=== PATIENT | female | born 1950 | race Caucasian/White ===

== ENCOUNTER 2024-12-07 20:46 | Observation (INO) ==
[2024-12-07 20:56] VITALS: TEMP 98.1
--- NOTE | 2024-12-07 20:59 | Emergency Department Note ---
Impression & Plan Acute alteration in mental status, Hypomagnesemia, Elevated troponin, Acute UTI ED Provider Note CHIEF COMPLAINT: Altered mental status, ? UTI HISTORY OF PRESENTING ILLNESS: This 74-year-old female patient presents to the emergency department with her granddaughter for evaluation of increased confusion and visual hallucinations. The patient's family states that yesterday she started to seem altered. Symptoms got worse today. The patient and her family state that she sometimes gets these symptoms with UTIs. The patient will have lucid intervals throughout the day, but then continued altered mental status. The patient has not had any facial droop, trouble walking, trouble talking, or weakness of the extremities. She has not had any strokelike symptoms other than the altered mental status and visual hallucinations. She denies any chest pain or shortness of breath. Denies any abdominal pain, nausea, or vomiting. The patient denies any urinary symptoms, but the patient is a very poor historian. She has not had any fever or chills. The patient does have a history of breast cancer. The patient had an outpatient MRI of her brain without contrast on 11/08/2024 that shows no acute intracranial abnormality or evidence for metastatic disease. Stable confluent T2 and FLAIR hyperintensities in the supratentorial white matter including temporal bones which is similar to prior study. This is nonspecific and may relate to chronic small vessel disease, demyelinating disease, vasculitis, or combination. REVIEW OF SYSTEMS: See HPI for pertinent positives and pertinent negatives. ALLERGIES: Latex, adhesive tape MEDICATIONS: See below PAST MEDICAL HISTORY: See below PHYSICAL EXAM: VITALS: Vitals are noted on the nurse's note and reviewed by myself. GENERAL: No acute distress, non-diaphoretic. SKIN: Capillary reflex less than 2 seconds. HEAD: No scalp tenderness. No step-offs felt. EARS: Bilateral external auditory canals clear. Bilateral tympanic membranes pearly arreola without erythema or effusion. No hemotympanum. No parikh sign. No mastoid tenderness. EYES: Pupils equal round and reactive to light and accommodation. Conjunctivae without injection, sclerae without icterus. Extraocular movements intact without pain. No nystagmus. NOSE: Patent, turbinates without inflammation or discharge. No sinus tenderness. No septal hematoma or bleeding. FACE: No facial bone tenderness. Full range of motion of the jaw without tenderness. No facial droop. MOUTH: Mucous membranes moist. Uvula midline. Airway patent. Tongue does not deviate. NECK: Supple without nuchal rigidity. Cervical spine is nontender. Full range of motion of the neck without tenderness and normal strength. HEART: Regular rate and rhythm without murmurs gallops or rubs. LUNGS: Clear to auscultation bilaterally without wheezes, rales or rhonchi. No retractions or accessory muscle use. No chest wall tenderness. ABDOMEN: Positive bowel sounds x 4. Normal tympanic percussion. Soft, nontender to palpation. No masses or hepatosplenomegaly. No guarding or rebound tenderness. No focal RLQ or LLQ tenderness. MUSCULOSKELETAL: No tenderness of the thoracic or lumbar spine or paraspinal muscles. Strength 5/5 and equal bilaterally in the upper and lower extremities. Peripheral pulses 2+ and equal in the bilateral upper and lower extremities. NEURO: Patient was alert and oriented to person place and time. Normal mental status exam, but it did take longer for her to answer questions. The patient was also talking about the kids that she saw in her house that were not there per family members. Normal sensation to light and sharp touch. DIFFERENTIAL DIAGNOSIS: Differential diagnosis includes UTI, pyelonephritis, sepsis, dehydration, hypovolemia, anemia, tumor, infection, hypoglycemia, electrolyte abnormalities, cardiac sources, intracerebral event, toxicologic, neurologic, as well as other pathologies. ED COURSE AND MEDICAL DECISION MAKING: HISTORY FROM INDEPENDENT HISTORIAN: Additional history obtained from the patient's family. MEDICATIONS GIVEN: 500 mL normal saline solution bolus. Rocephin 2 g IV. A total of 3 g of magnesium. MONITOR: Continuous satellite project site monitor: Order was placed for continuous satellite project site monitor. Patient was placed on the satellite project site monitor and continuous pulse ox. Patient was noted to be in normal sinus rhythm at an initial rate of 65 bpm per my interpretation. EKG: EKG was interpreted by myself as normal sinus rhythm at 60 bpm with no acute ST or T wave changes. INTERPRETATION OF LABS: I interpreted the labs with full lab results as below in the lab section of this note. Laboratory results pertinent to the emergent complaint are discussed in the MDM section below. The patient was advised to follow up with their PCP and/or specialist(s) for further outpatient monitoring and management of any abnormal results. INTERPRETATION OF IMAGING: Imaging studies were interpreted by myself and read by radiology as per the imaging section of this note. The patient was advised to follow up with their PCP and/or specialist(s) for further outpatient management of any non-emergent abnormal findings. CT scan of the brain without contrast showed atrophy and nonspecific white matter disease, but no acute intracranial abnormalities. EXTERNAL RECORDS REVIEWED: Outpatient MRI as above CONSULTATIONS: On-call hospitalist CRITICAL CARE: I have personally spent 40 minutes of critical care time in the direct management of this patient. This includes bedside care, interpretation of diagnostic studies, and testing, discussion with consultants, patient, and family members, and other required patient management activities. This 40 minutes is in excess of all separately billable procedures. MDM SUMMARY: I examined the patient. The patient has had an altered mental status and visual hallucinations since yesterday. The patient's family states that this usually happens when she has a UTI. The patient denies any symptoms currently, but her family states that she was seeing children in the house that were not there. The patient did have a recent outpatient MRI of her brain through [facility] as above. An IV lock was placed and labs were drawn. The patient was given 500 mL normal saline solution bolus. She declined any medication for pain or symptoms while in the ER. White blood cell count normal at 7.09. Hemoglobin low at 10.4. Platelet count normal at 218. Coags were normal. CMP without concerning findings. Lipase normal. Urinalysis is concerning for UTI with urine culture pending. Magnesium significantly low at 1.1. After discussion with Dr. Grider she was given a total of magnesium 3 g IV. The patient's high-sensitivity troponin was elevated at 14.6 with repeat elevated to 15.1. EKG without evidence for STEMI. The patient denies any chest pain or shortness of breath. CT scan of the brain without contrast showed atrophy and nonspecific white matter disease, but no acute intracranial abnormalities. I had a meaningful discussion about this patient with Dr. Grider who agrees with my assessment and the treatment plan. Due to the patient's UTI with altered mental status, significant hypomagnesemia, and elevated troponin it is felt the patient would benefit from admission for further evaluation and treatment. After discussion with the patient and her family, she was agreeable to admission. I spoke with the on-call hospitalist who agreed to admit the patient for further evaluation and treatment. Please refer to their dictation for further details. The patient's care was transferred in stable condition. DIAGNOSIS: Altered mental status UTI Hypomagnesemia Elevated troponin Past Med/Surg History Problem List (Updated 12/08/24 @ 05:56 by Chikis Kimball PA-C) Acute UTI (Acute) Acute alteration in mental status (Acute) Elevated troponin (Acute) Hypomagnesemia (Acute) UTI (urinary tract infection), uncomplicated Acute encephalopathy due to infection Cellulitis Fever Malignant neoplasm of lower-inner quadrant of left breast in female, estrogen receptor positive (Chronic 10/05/22) Status post left breast lumpectomy with excision of left axillary lymph node on 10/05/[address] Vasquez H/O lymph node biopsy 01/12/22 - Left axillary lymph node biopsy - Metastatic breast cancer Breast cancer, left breast Diagnosed on 01/12/22 with mets to left axillary lymph node and presumed thoracic spine mets Medical History (Updated 12/08/24 @ 05:56 by Chikis Kimball PA-C) Hypertension Hypercholesteremia Port-A-Cath in place History of chemotherapy Surgical History (Updated 11/03/22 @ 09:25 by Yuko Glez RN) History of cataract surgery Bilateral H/O unilateral salpingectomy With ovary removal as well - tubal Family History (Updated 11/03/22 @ 09:31 by Yuko Glez, HODAN) Mother , in her 80s COVID Stroke Endometrial cancer Breast cancer Father , 57yo Emphysema lung Brother No problems noted. Brother MVA (motor vehicle accident) Brother MVA (motor vehicle accident) Sister Breast cancer COPD (chronic obstructive pulmonary disease) Sister Family history unknown Son Accident Daughter Prematurity Daughter No problems noted. Son No problems noted. 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 Feels Safe at Home: Yes Diet: regular caffeine: Yes (1-2 cups/day) during the past year weight has: decreased > 10 lbs Allergies Allergies Allergy/AdvReac Type Severity Reaction Status Date / Time sacubitril [From Entresto] AdvReac Severe Confusion Verified 12/08/24 00:52 valsartan [From Entresto] AdvReac Severe Confusion Verified 12/08/24 00:52 adhesive tape AdvReac Mild Rash Verified 12/08/24 00:53 PEDI-PRE TAPE SPRAY Allergy Intermediate Rash Uncoded 12/08/24 00:57 Home Meds Home Medications Medication Instructions Recorded Confirmed anastrozole 1 mg tablet 1 mg PO QAM 11/03/22 12/08/24 calcium carbonate (Calcium 600) 1,800 mg PO BIDM 11/03/22 12/08/24 cholecalciferol (vitamin D3) 25 25 mcg PO DAILY 11/03/22 12/08/24 mcg (1,000 unit) capsule carvedilol 3.125 mg tablet 3.125 mg PO BIDM 12/26/22 12/08/24 lisinopril 40 mg tablet 40 mg PO DAILY 04/28/23 12/08/24 aspirin 81 mg tablet 81 mg PO DAILY 12/08/24 12/08/24 atorvastatin 20 mg tablet 20 mg PO QAM 12/08/24 12/08/24 cholecalciferol (vitamin D3) 125 125 mcg PO QPM 12/08/24 12/08/24 mcg (5,000 unit) tablet (Vitamin D3) Previous Rx's Medication Instructions Recorded cefdinir 300 mg capsule 300 mg PO BID #12 caps 12/08/24 Results & Data (ED) Vital Signs Vital Signs - 24 hr 12/07/24 20:53 12/07/24 22:06 12/07/24 22:34 Temperature 36.7 C Temperature Source Oral Pulse Rate 69 58 L Pulse Rate [Apical] Respiratory Rate 19 Respiratory Effort / Characteristics Non-Labored Spontaneous Respiratory Depth Normal Blood Pressure 144/74 H Blood Pressure [Right Arm] Blood Pressure Mean 97 Blood Pressure Mean [Right Arm] Pulse Oximetry 96 Oxygen Delivery Method Room Air Room Air Sepsis Recent Fever Within 48 Hours No Sepsis New/Unexplained Change in Mental Status No Sepsis Action Taken by Nursing No Action Required 12/07/24 23:08 12/08/24 01:00 Temperature Temperature Source Pulse Rate Pulse Rate [Apical] 56 L 59 L Respiratory Rate 20 19 Respiratory Effort / Characteristics Respiratory Depth Blood Pressure Blood Pressure [Right Arm] 193/92 H 177/84 H Blood Pressure Mean Blood Pressure Mean [Right Arm] 125 115 Pulse Oximetry 98 98 Oxygen Delivery Method Room Air Sepsis Recent Fever Within 48 Hours Sepsis New/Unexplained Change in Mental Status Sepsis Action Taken by Nursing Laboratory Data 12/08/24 05:50 12/08/24 05:50 Lab Results 12/07/24 12/08/24 Range/Units 22:05 00:23 WBC 7.09 (4.8-10.8) K/ul RBC 3.39 L (4.20-5.40) M/uL Hgb 10.4 L (12.0-16.0) g/dl Hct 31.6 L (37.0-47.0) % MCV 93.2 (80.0-100.0) fL MCH 30.7 (25.0-34.0) pg MCHC 32.9 (32.0-36.0) g/dL RDW Std Deviation 47.8 H (36.4-46.3) fL RDW Coeff of Sara 14.2 (11.5-14.5) % Plt Count 218 (130-400) K/uL MPV 9.6 (9.4-12.4) fL Immature Gran % (Auto) 0.3 % Neut % (Auto) 64.8 % Lymph % (Auto) 23.3 % Wilcox % (Auto) 8.7 % Eos % (Auto) 2.5 % Baso % (Auto) 0.4 % Neut # (Auto) 4.59 (1.40-6.50) K/uL Lymph # (Auto) 1.65 (1.20-3.40) K/uL Wilcox # (Auto) 0.62 H (0.11-0.59) K/uL Eos # (Auto) 0.18 (0.00-0.50) K/uL Baso # (Auto) 0.03 (0.00-0.20) K/uL Immature Gran # (Auto) 0.02 (0.01-0.20) K/uL PT 11.4 (9.0-12.0) Seconds INR 1.1 (0.9-1.1) APTT 27 (21-31) Seconds PTT Ratio 1.0 Sodium 139 (136-145) mmol/L Potassium 3.7 (3.5-5.1) mmol/L Chloride 103 (98-107) mmol/L Carbon Dioxide 30 (21-32) mmol/L Anion Gap 6 (3-11) BUN 22 (6-23) mg/dl Creatinine 1.20 (0.6-1.2) mg/dl Est Cr Clr Drug Dosing 37.9 ml/min eGFR 47.21 BUN/Creatinine Ratio 18.3 (10-20) Glucose 94 (70-99(Fasting)) mg/dl Calcium 9.5 (8.6-10.3) mg/dl Magnesium 1.1 L (1.7-2.4) mg/dl Total Bilirubin 0.6 (0.2-1.0) mg/dl AST 15 (13-39) U/L ALT 8 (7-52) U/L Alkaline Phosphatase 51 (34-104) U/L Troponin I High Sens 14.6 H 15.1 H (0-14) pg/ml Total Protein 7.2 (6.0-8.3) gm/dl Albumin 3.7 (3.4-5.0) gm/dl Globulin 3.5 (2.5-4.0) gm/dl Albumin/Globulin Ratio 1.1 (0.9-2) Lipase 28 (11-82) U/L Urine Color Yellow Urine Appearance Clear (Clear) Urine pH 5.5 (4.5-7.5) Ur Specific [place] 1.019 (1.000-1.030) Urine Protein Negative (Negative) Urine Glucose (UA) Negative (Negative) Urine Ketones Trace H (Negative) Urine Blood Trace H (Negative) Urine Nitrite Negative (Negative) Urine Bilirubin Negative (Negative) Urine Urobilinogen Negative (Negative) Ur Leukocyte Esterase 2+ H (Negative) Urine WBC (Auto) 21-50 H (0-5) /hpf Urine RBC (Auto) 0-2 (0-2) /hpf U Hyaline Cast (Auto) 0-2 (0-2) /lpf U Epithel Cells (Auto) 3-5 H (0-2) /hpf Urine Bacteria (Auto) None Seen (None Seen) Urine Comment Administered Medications Discontinued Medications Anastrozole (Anastrozole 1 Mg Tab) [facility] [place] [facility] [place] Stop: 01/07/25 08:59 Last Admin: 12/08/24 08:35 Dose: 1 mg Documented By: EULA Co-signed By: SALLY Atorvastatin Calcium (Atorvastatin 20 Mg Tab) 20 mg PO QAM [facility] Stop: 01/07/25 08:59 Last Admin: 12/08/24 08:35 Dose: 20 mg Documented By: EULA Carvedilol (Carvedilol 3.125 Mg Tab) 3.125 mg PO NOW ONE Stop: 12/08/24 01:47 Last Admin: 12/08/24 02:26 Dose: Not Given Documented By: abbie Carvedilol (Carvedilol 3.125 Mg Tab) 3.125 mg PO BIDM [facility] Stop: 01/07/25 07:59 Last Admin: 12/08/24 08:35 Dose: 3.125 mg Documented By: EULA Sodium Chloride (Nss) 500 mls @ 999 mls/hr IV .Q31M ONE Stop: 12/07/24 22:15 Last Infusion: 12/07/24 23:42 Dose: Infused Documented By: abl Admin: 12/07/24 22:05 Dose: 999 mls/hr Documented By: HONG Magnesium Sulfate/Dextrose (Magnesium Sulfate / D5w) 1 gm in 100 mls @ 100 mls/hr IV NOW STA Stop: 12/08/24 00:10 Last Infusion: 12/08/24 03:55 Dose: Infused Documented By: Admin: 12/08/24 01:57 Dose: 100 mls/hr Documented By: mls Magnesium Sulfate/Dextrose (Magnesium Sulfate / D5w) 1 gm in 100 mls @ 200 mls/hr IV Q30M [facility] Stop: 12/08/24 00:25 Last Infusion: 12/08/24 01:08 Dose: Infused Documented By: abl Admin: 12/08/24 00:31 Dose: 200 mls/hr Documented By: abl Infusion: 12/08/24 00:07 Dose: Infused Documented By: abl Admin: 12/07/24 23:37 Dose: 200 mls/hr Documented By: abl Ceftriaxone Sodium (Rocephin) 2,000 mg in 50 mls @ 100 mls/hr IV NOW STA Stop: 12/08/24 00:03 Last Infusion: 12/08/24 01:41 Dose: Infused Documented By: mls Admin: 12/08/24 01:11 Dose: 100 mls/hr Documented By: abl Lisinopril (Lisinopril 40 Mg Tab) 40 mg PO DAILY [facility] Stop: 01/07/25 08:59 Last Admin: 12/08/24 08:35 Dose: 40 mg Documented By: EULA Potassium Chloride (Potassium Chloride 10 Meq Tabcr) 30 meq PO NOW STA Stop: 12/08/24 01:59 Last Admin: 12/08/24 02:24 Dose: 30 meq Documented By: mls Imaging Data Radiologist's Impression: Head CT 12/07/24 21:45 Exam(s): CT HEAD Without Contrast EXAM: CT Head Without Intravenous Contrast CLINICAL HISTORY: Reason for exam: Altered mental status. TECHNIQUE: Axial computed tomography images of the head/brain without intravenous contrast. CTDI is 37.95 mGy and DLP is 625.8 mGy-cm. Automated exposure control was utilized for the study. A dose lowering technique was utilized adhering to the principles of ALARA. COMPARISON: No relevant prior studies available. FINDINGS: Motion artifact degrades image quality limiting the exam. Brain: No acute intracranial hemorrhage. There is decreased attenuation within the white matter.. Ventricles: There is prominence of the ventricular system with deepening of the sulci consistent with cortical and central atrophy. Bones/joints: Unremarkable. No acute fracture. Soft tissues: Unremarkable. Sinuses: Unremarkable as visualized. No acute sinusitis. Mastoid air cells: Unremarkable as visualized. No mastoid effusion. IMPRESSION: Atrophy. Nonspecific white matter disease. If further evaluation is clinically necessary, consider correlation with MRI. Electronically signed by: Hansel Glass MD 12/07/24 23:33 PM Discharge Plan Visit Data Chief Complaint: Urinary Symptoms Stated Complaint: AMS (UTI), NOTICED YESTDERAY ED Provider: Miguel Grider ED Midlevel Provider: Chikis Kimball Discharge Problem: Acute alteration in mental status, Hypomagnesemia, Elevated troponin, Acute UTI Patient Disposition: Admitted As Inpatient Condition: Good Discharge Instructions Interventions: ED Discharge Assessment Last Done: 12/08/24 03:46
[2024-12-07] MEDS: SODIUM CHLORIDE 0.9% 500 ML IV ONE (22:05)
[2024-12-07 22:20] LABS: Hematocrit (blood only) 31.6 % (37.0-47.0); Hemoglobin 10.4 g/dl (12.0-16.0); Immature Granulocytes # (auto) 0.02 K/uL (0.01-0.20); Immature Granulocytes % (auto) 0.3 %; Mean Corpuscular Hemoglobin 30.7 pg (25.0-34.0); Mean Corpuscular Volume 93.2 fL (80.0-100.0); Platelet Count 218 K/uL (130-400); RDW Standard Deviation 47.8 fL (36.4-46.3); Red Blood Count 3.39 M/uL (4.20-5.40); White Blood Count 7.09 K/ul (4.8-10.8)
[2024-12-07 22:21] LABS: Appearance Urine Clear (Clear); Bacteria Urine Automated None Seen (None Seen); Cast Urine Automated 0-2 /lpf (0-2); Glucose Urine UA Negative (Negative); RBC Urine Automated 0-2 /hpf (0-2); WBC Urine Automated 21-50 /hpf (0-5)
[2024-12-07 22:37] LABS: Alanine Aminotransferase 8.0 U/L (7-52); Albumin Globulin Ratio 1.1 (0.9-2); Albumin Level 3.7 gm/dl (3.4-5.0); Alkaline Phosphatase 51.0 U/L (34-104); Anion Gap 6.0 (3-11); Bilirubin,Total 0.6 mg/dl (0.2-1.0); Blood Urea Nitrogen 22.0 mg/dl (6-23); Calcium 9.5 mg/dl (8.6-10.3); Carbon Dioxide 30.0 mmol/L (21-32); Chloride 103.0 mmol/L (98-107); Creatinine Clr Calc Pharmacy 37.9 ml/min; Globulin 3.5 gm/dl (2.5-4.0); Glucose 94.0 mg/dl (70-99(Fasting)); Lipase 28.0 U/L (11-82); Magnesium 1.1 mg/dl (1.7-2.4); Potassium 3.7 mmol/L (3.5-5.1); Sodium 139.0 mmol/L (136-145); Total Protein 7.2 gm/dl (6.0-8.3)
--- NOTE | 2024-12-07 23:33 | CT Scan Report ---
Exam(s): CT HEAD Without Contrast EXAM: CT Head Without Intravenous Contrast CLINICAL HISTORY: Reason for exam: Altered mental status. TECHNIQUE: Axial computed tomography images of the head/brain without intravenous contrast. CTDI is 37.95 mGy and DLP is 625.8 mGy-cm. Automated exposure control was utilized for the study. A dose lowering technique was utilized adhering to the principles of ALARA. COMPARISON: No relevant prior studies available. FINDINGS: Motion artifact degrades image quality limiting the exam. Brain: No acute intracranial hemorrhage. There is decreased attenuation within the white matter.. Ventricles: There is prominence of the ventricular system with deepening of the sulci consistent with cortical and central atrophy. Bones/joints: Unremarkable. No acute fracture. Soft tissues: Unremarkable. Sinuses: Unremarkable as visualized. No acute sinusitis. Mastoid air cells: Unremarkable as visualized. No mastoid effusion. IMPRESSION: Atrophy. Nonspecific white matter disease. If further evaluation is clinically necessary, consider correlation with MRI. Electronically signed by: Hansel Glass MD 12/07/24 23:33 PM
[2024-12-07] MEDS: MAGNESIUM SULFATE / D5W 1 GM/100 ML BAG IV SCH (23:37)
[2024-12-07 23:38] LABS: INR 1.1 (0.9-1.1); Partial Thromboplastin Time 27 Seconds (21-31); Prothrombin Time 11.4 Seconds (9.0-12.0)
[2024-12-08] MEDS: cefTRIAXone SODIUM 2,000 MG/50 ML BAG IV STA (01:11)
--- NOTE | 2024-12-08 01:46 | History & Physical Report ---
Date of Service December 08, 2024 Assessment & Plan (1) Acute encephalopathy due to infection: (2) UTI (urinary tract infection), uncomplicated: (3) Hypomagnesemia: (4) Elevated troponin: Plan Patient is a 74-year-old female with past medical history of breast cancer s/p radiation and lumpectomy, HTN, HLD. Patient presented due to confusion and visual hallucinations x 2 days similar to the previous UTI she had in September. UA appears concerning for infection and she was also found to have a magnesium 1.1, troponin 14.6. #acute encephalopathy/UTI - encephalopathy resolved at time of admission. Head CT negative. UA appears concerning for infection however possible contaminant with 3-5 epithelial cells. Nonseptic no leukocytosis, VSS, afebrile. Renal function stable. History of pansensitive E. coli Started on Rocephin 2G IV in the ED; continue Rocephin however possible DC home 12/08 on oral antibiotics Follow urine cultures Trend CBC and BMP #Hypomagnesemiapatient denies any GI losses, stated appetite has been stable, not on any diuretics. Mag 1.1, K+ 3.7, renal function stable. 3G IV magnesium given 30 mEq p.o. KCl ordered Trend BMP and magnesium #Elevated troponininitial troponin 4.6 up trended to 15.1. EKG showed NSR without ischemic changes. Patient denies any chest pain. Likely 2/2 demand ischemia with acute infection above. Trend troponin every 6 hours Monitor on telemetry #HTNcontinue lisinopril and carvedilol #HLDcontinue atorvastatin #Breast cancers/p chemo therapy and lumpectomy in 2022. Follow[address] Hooker. Continue anastrozole. #AnemiaHgb 10.4, baseline unknown is no previous records within the EMR. Trend CBC VTE ppx: SCDs, low risk and obs status - if prolonged stay consider chemical ppx Dispo: med/tel obs - possible dc home in am 12/08 Admission and Anticipated Discharge Date Admission Date: 12/08/24 History of Present Illness Chief Complaint: urinary symptoms Primary Care Provider: Shruti Blue PA-C Patient is a 74-year-old female with past medical history of breast cancer s/p radiation and lumpectomy, HTN, HLD. Patient presented due to confusion and visual hallucinations x 2 days similar to the previous UTI she had in September. UA appears concerning for infection and she was also found to have a magnesium 1.1, troponin 14.6. Patient seen at bedside with her granddaughter present. She stated that she was confused and had visual hallucinations, her daughter was in the room. This has gotten worse throughout the day today however did begin yesterday. She had similar symptoms when she reportedly had a UTI in September. She denies any strokelike symptoms such as slurred speech, facial droop, numbness/tingling, weakness, visual changes. She denies any urinary symptoms such as dysuria, abdominal pain, hematuria. She does endorse dyspnea on exertion however chronic and unchanged. She denies any chest pain. She was a former smoker however stated that she quit the day that she found out she had breast cancer. She denies alcohol use. She is due for her evening medications including carvedilol, will order. She wishes to be full code. Patient adamant that she goes home in the morning. Discussed elevated troponin needing further workup and low magnesium needing repletion because of risk for cardiac arrhythmias. She is aware of the risk and stated that she absolutely wants to go home in the morning. Note the patient has a [facility] PCP however is being admitted to [facility] Medicine services due to insurance. Allergies Allergy/AdvReac Type Severity Reaction Status Date / Time sacubitril [From Entresto] AdvReac Severe Confusion Verified 12/08/24 00:52 valsartan [From Entresto] AdvReac Severe Confusion Verified 12/08/24 00:52 adhesive tape AdvReac Mild Rash Verified 12/08/24 00:53 PEDI-PRE TAPE SPRAY Allergy Intermediate Rash Uncoded 12/08/24 00:57 Home Medications Medication Instructions Recorded Confirmed Type anastrozole 1 mg tablet 1 mg PO QAM 11/03/22 12/08/24 History calcium carbonate (Calcium 600) 1,800 mg PO BIDM 11/03/22 12/08/24 History cholecalciferol (vitamin D3) 25 25 mcg PO DAILY 11/03/22 12/08/24 History mcg (1,000 unit) capsule carvedilol 3.125 mg tablet 3.125 mg PO BIDM 12/26/22 12/08/24 History lisinopril 40 mg tablet 40 mg PO DAILY 04/28/23 12/08/24 History aspirin 81 mg tablet 81 mg PO DAILY 12/08/24 12/08/24 History atorvastatin 20 mg tablet 20 mg PO QAM 12/08/24 12/08/24 History cefdinir 300 mg capsule 300 mg PO BID #12 caps 12/08/24 Rx cholecalciferol (vitamin D3) 125 125 mcg PO QPM 12/08/24 12/08/24 History mcg (5,000 unit) tablet (Vitamin D3) Past Med/Surg History Problem List (Updated 12/08/24 @ 05:56 by Chikis Kimball PA-C) Acute UTI (Acute) Acute alteration in mental status (Acute) Elevated troponin (Acute) Hypomagnesemia (Acute) UTI (urinary tract infection), uncomplicated Acute encephalopathy due to infection Cellulitis Fever Malignant neoplasm of lower-inner quadrant of left breast in female, estrogen receptor positive (Chronic 10/05/22) Status post left breast lumpectomy with excision of left axillary lymph node on 10/05/[address] Vasquez H/O lymph node biopsy 01/12/22 - Left axillary lymph node biopsy - Metastatic breast cancer Breast cancer, left breast Diagnosed on 01/12/22 with mets to left axillary lymph node and presumed thoracic spine mets Medical History (Updated 12/08/24 @ 05:56 by Chikis Kimball PA-C) Hypertension Hypercholesteremia Port-A-Cath in place History of chemotherapy Surgical History (Updated 11/03/22 @ 09:25 by Yuko Glez RN) History of cataract surgery Bilateral H/O unilateral salpingectomy With ovary removal as well - tubal Family History (Updated 11/03/22 @ 09:31 by Yuko Glez RN) Mother , in her 80s COVID Stroke Endometrial cancer Breast cancer Father , 57yo Emphysema lung Brother No problems noted. Brother MVA (motor vehicle accident) Brother MVA (motor vehicle accident) Sister Breast cancer COPD (chronic obstructive pulmonary disease) Sister Family history unknown Son Accident Daughter Prematurity Daughter No problems noted. Son No problems noted. 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 Non-toxic appearing. HEENT- EOMI, mucous membranes moist. Hearing grossly intact. Heart-normal S1 and S2. No murmurs, rubs or gallops. Lungs-clear bilaterally, no respiratory distress, no accessory muscle use. Abdomen-normal bowel sounds and soft. No ascites noted. Non-tender. Extremities- no clubbing, cyanosis, or edema. Rheumatologic-normal range of motion. Psychiatric-normal affect. Results & Data Results & Data Vital Signs (Past 12 Hours) Vital Signs Temp Pulse Pulse Resp BP BP Pulse Ox 12/08/24 01:00 59 L 19 177/84 H 98 12/07/24 23:08 56 L 20 193/92 H 98 12/07/24 22:34 58 L 12/07/24 22:06 12/07/24 20:53 36.7 C 69 19 144/74 H 96 O2 Del Method 12/08/24 01:00 Room Air 12/07/24 23:08 12/07/24 22:34 12/07/24 22:06 Room Air 12/07/24 20:53 Room Air Laboratory Results Reviewed CBC, PT/INR, CMP, Pro-Tommy, UA, troponin, mag Diagnostic Findings reviewed head CT Medications Administered ed - Rocephin 2g IV, mag 3g IV, 500 ml NSS bolus ECG Additional Comments: NSR, rate 60 qtc 424 Code Status & VTE Plan Code Status full code VTE Prophylaxis Plan VTE Prophylaxis will be ordered: Yes Supervising Physician Co-Signing Physician Notes Attending addendum: I have physically seen this patient, have supervised the ABBEY's activities, and agree with the H&P unless as otherwise noted. Assessment and Plan: The patient is a 74-year-old female with past medical history including breast cancer status post radiation and lumpectomy, hypertension, and hyperlipidemia. She presented to the emergency department due to confusion and visual jay llucinations x 2 days, similar to previous admission for urinary tract infection in September. Urinalysis again appears concerning for infection. Electrolyte disturbances show magnesium of 1.1. Acute encephalopathy due to UTI- Similar to previous presentations Follow urine culture and sensitivity History of pansensitive E. coli UTI Ceftriaxone 2 g IV every 24 hours Follow serial CBC with differential and basic metabolic panel Hypomagnesemia- Magnesium 1.1 on admission Give magnesium sulfate 3 g IV Give Klor-Con 30 mill equivalents p.o. for potassium 3.7 Repeat laboratories in the a.m. Elevated troponin/hypertension- Continue lisinopril and carvedilol Initial troponin 4.6 with follow-up 15.1 Repeat laboratories in a.m. Likely demand ischemia Hyperlipidemia- Continue atorvastatin Breast cancer- Status post chemotherapy and lumpectomy in 2022 Continue anastrozole Remaining orders and notations as noted PG Care Time/CCT Total # of Minutes Spent Total Time Spent with Patient: Total time spent is greater than 50% in coordination of care (as documented) at patient's floor/unit and/or counseling patient: Coding Level of Care Code 44708 INT INP/OBS CARE MIN Diagnoses Acute encephalopathy due to infection G93.49; B99.9 UTI (urinary tract infection), uncomplicated N39.0 Hypomagnesemia E83.42 Elevated troponin R79.89
[2024-12-08] MEDS: MAGNESIUM SULFATE / D5W 1 GM/100 ML BAG IV STA (01:57)
--- NOTE | 2024-12-08 02:05 | Emergency Department Note ---
ED Visit Note I was consulted by the Advanced Practice Provider, Chikis Bautista. I performed a substantive portion of the visit. This includes aspects of: History: This is a 74-year-old female with a past medical history significant for breast cancer and frequent UTIs presenting to the emergency department further evaluation of altered mental status. Patient is concern for possible UTI leading to her symptoms today. MDM: The patient is hypertensive but otherwise afebrile and hemodynamically stable. Labs and imaging were obtained. Possible UTI. Significant hypomagnesemia present. Troponin mildly elevated. EKG reassuring. CTH independently interpreted by me reveals no evidence of ICH. No significant hydrocephalus. No major skull fractures. CTH does not demonstrate findings to suggest an etiology of the patient's symptoms or presentation, today. Given mild troponinemia, hypomagnesemia, and possible UTI complicated by acute encephalopathy, admission was requested. Patient was discussed with the hospitalist service and subsequently admitted. [facility] Emergency Medicine .
[2024-12-08] MEDS: POTASSIUM CHLORIDE 10 MEQ TABCR PO STA (02:24)
[2024-12-08] MEDS ORDERED: ACETAMINOPHEN 325 MG TAB PO PRN (03:46)
[2024-12-08] MEDS ORDERED: DOCUSATE SODIUM 100 MG CAP PO PRN (03:46)
[2024-12-08] MEDS ORDERED: MELATONIN 3 MG TAB PO PRN (03:46)
[2024-12-08] MEDS ORDERED: ONDANSETRON INJ 2 MG/ML 2 ML VIAL IV PRN (03:46)
[2024-12-08 06:04] LABS: Hematocrit (blood only) 32.0 % (37.0-47.0); Hemoglobin 10.5 g/dl (12.0-16.0); Immature Granulocytes # (auto) 0.01 K/uL (0.01-0.20); Immature Granulocytes % (auto) 0.2 %; Mean Corpuscular Hemoglobin 30.6 pg (25.0-34.0); Mean Corpuscular Volume 93.3 fL (80.0-100.0); Platelet Count 197 K/uL (130-400); RDW Standard Deviation 48.5 fL (36.4-46.3); Red Blood Count 3.43 M/uL (4.20-5.40); White Blood Count 5.76 K/ul (4.8-10.8)
[2024-12-08 06:25] LABS: Anion Gap 6.0 (3-11); Blood Urea Nitrogen 17.0 mg/dl (6-23); Calcium 8.9 mg/dl (8.6-10.3); Carbon Dioxide 30.0 mmol/L (21-32); Chloride 106.0 mmol/L (98-107); Creatinine Clr Calc Pharmacy 56.9 ml/min; Glucose 97.0 mg/dl (70-99(Fasting)); Magnesium 2.0 mg/dl (1.7-2.4); Potassium 4.0 mmol/L (3.5-5.1); Sodium 142.0 mmol/L (136-145)
[2024-12-08] MEDS: ANASTROZOLE 1 MG TAB PO SCH (08:35)
[2024-12-08] MEDS: ATORVASTATIN 20 MG TAB PO SCH (08:35)
[2024-12-08 08:41] VITALS: RESP 17; O2SAT 97
--- NOTE | 2024-12-08 12:31 | Discharge Summary ---
Discharge Summary Date of Service December 08, 2024 Principal Dx & Hospital Course #1 = Principal Diagnosis (1) Acute encephalopathy due to infection: (2) UTI (urinary tract infection), uncomplicated: (3) Hypomagnesemia: (4) Elevated troponin: Plan Patient is a 74-year-old female with past medical history of breast cancer s/p radiation and lumpectomy, HTN, HLD, and former smoker who presented due to confusion and visual hallucinations x 2 days similar to the previous UTI she had in September. UA appears concerning for infection and she was also found to have a magnesium 1.1, troponin 14.6. #acute encephalopathy/UTI - encephalopathy resolved at time of admission and she remains within normal mental status on the day of discharge. Head CT negative. Nonseptic no leukocytosis, VSS, afebrile. Renal function stable. Urine culture with pinpoint growth at the time of discharge. She has a history of pansensitive E. coli. She did not have any urinary symptoms otherwise. She was started on Rocephin 2G IV x 1 - Discharged home with cefdinir 300 mg p.o. twice daily x 6 more days Follow urine culture after discharge in case of resistance -Follow-up with PCP #Hypomagnesemiapatient denies any GI losses, but has had poor p.o. intake last couple of days with being confused. She is not on any diuretics or PPI. Mag 1.1, K+ 3.7, renal function stable on admission. She was given 3 g of IV magnesium and 30 mEq of p.o. KCl. Her magnesium on the day of discharge was normal at 2.0 and potassium normal at 4.0. There is no other baseline magnesium in the hospital lab system to compare to. -Recommend checking magnesium level with PCP in 1 to 2 weeks as an outpatient to ensure remaining normal #Elevated troponininitial troponin 14.6, then 15.1, then 19 approximately 7 hours later. EKG showed NSR without ischemic changes. Patient denies any chest pain. I was able to review her [facility] medical records-she was recently seen by the cardiology nurse practitioner at [facility] for dyspnea on exertion. She had a mildly reversible apical lesion on a nuclear medicine stress test approximately 2 years ago-at that time, cardiology offered her cardiac catheterization but she declined and opted for medical management. She had been started on Entresto which caused her severe orthostasis and multiple falls. Entresto was subsequently discontinued and she remains on lisinopril along with her carvedilol. Her blood pressures were significantly elevated here in the 200 systolic range on arrival possibly secondary to the acute confusion and UTI. Suspect mild elevation of troponin secondary to hypertension with likely LVH. Blood pressures were improved at the time of discharge after receiving her home carvedilol and lisinopril. - Keep appointments for repeat echocardiogram and nuclear medicine stress test as an outpatient - Follow-up with cardiology as planned -No need for further inpatient evaluation -For dyspnea on exertion, if cardiac testing negative, recommend PFTs to assess for COPD as she has a longstanding history of smoking-or could order PFTs prior to cardiac testing-defer to PCP #HTNBPs quite elevated on arrival as above and now improved - Continue lisinopril and carvedilol-consider adding third medication as an outpatient such as amlodipine-no room to increase beta-shanna as she is bradycardic in the 50s - Follow-up with PCP and cardiology #HLDcontinue atorvastatin #Breast cancers/p chemo therapy and lumpectomy in 2022. Follow[address] with Dr[address] Hooker. Continue anastrozole. #AnemiaHgb 10.4, baseline unknown is no previous records within the EMR. MCV 93/normocytic. Does follow with hematology Dr. Hooker for her history of breast cancer Follow-up with PCP or hematology on this as an outpatient - Would recommend checking B12, folate, iron studies, TSH as an outpatient if not done recently - If iron deficient, recommend GI workup-defer to PCP VTE ppx: SCDs Dispo: Stable for discharge to home. Discussed her care extensively with her significant other at the bedside on the day of discharge Notes For Next Care Provider Follow-up on anemia Check magnesium level in 1 to 2 weeks Medication Changes From Visit Added cefdinir 300 mg p.o. twice daily x 6 more days Admission HPI Per Admitting Provider Patient is a 74-year-old female with past medical history of breast cancer s/p radiation and lumpectomy, HTN, HLD. Patient presented due to confusion and visual hallucinations x 2 days similar to the previous UTI she had in September. UA appears concerning for infection and she was also found to have a magnesium 1.1, troponin 14.6. Patient seen at bedside with her granddaughter present. She stated that she was confused and had visual hallucinations, her daughter was in the room. This has gotten worse throughout the day today however did begin yesterday. She had similar symptoms when she reportedly had a UTI in September. She denies any strokelike symptoms such as slurred speech, facial droop, numbness/tingling, weakness, visual changes. She denies any urinary symptoms such as dysuria, abdominal pain, hematuria. She does endorse dyspnea on exertion however chronic and unchanged. She denies any chest pain. She was a former smoker however stated that she quit the day that she found out she had breast cancer. She denies alcohol use. She is due for her evening medications including carvedilol, will order. She wishes to be full code. Patient adamant that she goes home in the morning. Discussed elevated troponin needing further workup and low magnesium needing repletion because of risk for cardiac arrhythmias. She is aware of the risk and stated that she absolutely wants to go home in the morning. Note the patient has a [facility] PCP however is being admitted to [facility] Medicine services due to insurance. Discharge Exam Constitutional WD/WN, vitals as above Eyes PERRL, conjunctivae normal, anicteric sclerae ENMT external ear and nose normal, oropharynx normal Neck trachea midline, no thyromegaly Respiratory normal respiratory effort, lungs clear to auscultation Cardiovascular Rate/Rhythm: regular rhythm and + bradycardic Heart Sounds: no murmur Extremities: no edema Chest (Breasts) Chest: normal inspection of chest Gastrointestinal (Abdomen) normal bowel sounds, soft, nontender, no hepatosplenomegaly Musculoskeletal Extremities: extremities normal to inspection; no cyanosis and no clubbing Skin no rashes, warm and dry Neurologic moves all extremities and awake; no focal motor deficits Psychiatric A+Ox3, euthymic affect Lymphatic no lymphedema Discharge Plan Discharge Items Patient Disposition: Home - Self-Care Reason For Visit: HYPOMAG, TROP, UTI Discharge Diagnosis: UTI Acute metabolic encephalopathy-resolved Mildly elevated troponin Hypomagnesemia Condition on Discharge: Good Activity: Resume your previous activity Non-emergency contact: Primary Care Provider Call non-emergency contact if: you have any medication questions and your sy mptoms worsen Follow-up/Referrals: Shruti Blue PA-C [Primary Care Provider] - (Please follow-up within 1-2 weeks) Diet: Heart Healthy [facility] Attending Provider Instructions: For your urinary tract infection, please finish out 6 more days of the antibiotic called cefdinir to be taken twice daily. If the urine culture comes back with a bacteria that is resistant to this antibiotic, you will be contacted and informed. Your troponin blood test for strain on the heart was very mildly elevated but you did not have a heart attack. This could have been secondary to your elevated blood pressure. Please continue your usual blood pressure medications and follow-up with cardiology as planned for your stress test and echocardiogram of the heart in the near future. Your magnesium level was quite low and this could have been due to you not eating much lately when you were sick with your urinary infection. Your magnesium was replaced and normalized. Please have your primary care provider recheck your magnesium levels in 1 to 2 weeks to ensure that they are remaining normal. Pending Studies at Discharge: Yes (Urine culture) Stand-Alone Forms: My [facility], Smoking Cessation Medications and DC Order Prescriptions: New cefdinir 300 mg capsule 300 mg PO BID Qty: 12 0RF Continued anastrozole 1 mg tablet 1 mg PO QAM calcium carbonate [Calcium 600] 600 mg calcium (1,500 mg) tablet 1,800 mg PO BIDM cholecalciferol (vitamin D3) 25 mcg (1,000 unit) capsule 25 mcg PO DAILY carvedilol 3.125 mg tablet 3.125 mg PO BIDM Rx Instructions: take with morning and evening meals lisinopril 40 mg tablet 40 mg PO DAILY atorvastatin 20 mg tablet 20 mg PO QAM cholecalciferol (vitamin D3) [Vitamin D3] 125 mcg (5,000 unit) Tablet 125 mcg PO QPM aspirin 81 mg Tablet 81 mg PO DAILY Discharge Orders: Discharge Order (Routine); Ordered 12/08/24 Ordered By: Mara Valdez Admission Data Admit Date/Time: 12/08/24 02:06 Attending Provider: Mara Valdez Admit Provider: Elgin Clarke Primary Care Provider: Shruti Blue Other Providers: Elgin Clarke Hospital Stay Data Consultations 12/08/24 01:58 ED Decision to Admit Stat Diagnostic Imagining Performed 12/07/24 21:45 CT head/brain wo con Stat Pending Results Patient Have Any Pending Studies at Discharge: Yes (Urine culture) Discharge Instructions Given to Patient (Per Discharging Provider) For your urinary tract infection, please finish out 6 more days of the antibiotic called cefdinir to be taken twice daily. If the urine culture comes back with a bacteria that is resistant to this antibiotic, you will be contacted and informed. Your troponin blood test for strain on the heart was very mildly elevated but you did not have a heart attack. This could have been secondary to your elevated blood pressure. Please continue your usual blood pressure medications and follow-up with cardiology as planned for your stress test and echocardiogram of the heart in the near future. Your magnesium level was quite low and this could have been due to you not eating much lately when you were sick with your urinary infection. Your magnesium was replaced and normalized. Please have your primary care provider recheck your magnesium levels in 1 to 2 weeks to ensure that they are remaining normal. Total Time Total Time Spent Total Time Spent (In Minutes): 40 minutes Total Time Includes: Examination of the Patient, Discharge Planning and Medication Reconciliation Coding Level of Care Code 30324 INP/OBS DISCH >30 MIN Diagnoses Acute encephalopathy due to infection G93.49; B99.9 UTI (urinary tract infection), uncomplicated N39.0 Hypomagnesemia E83.42 Elevated troponin R79.89
[2024-12-08 13:04] VITALS: BP 115/60; PULSE 69
--- NOTE | 2024-12-08 19:52 | Electrocardiogram Report ---
Test Reason : Blood Pressure : */* mmHG Vent. Rate : 60 BPM Atrial Rate : 60 BPM P-R Int : 150 ms QRS Dur : 84 ms QT Int : 424 ms P-R-T Axes : 43 -12 87 degrees QTcB Int : 424 ms Normal sinus rhythm with sinus arrhythmia Normal ECG No previous ECGs available Confirmed by Finn Tello ([id number]) on 12/08/2024 7:51:52 PM Referred By: REFERRED SELF Confirmed By: Finn Tello
[2024-12-08] MEDS ORDERED: cefTRIAXone SODIUM 1,000 MG/50 ML BAG IV SCH (23:00)
== END 2024-12-08 13:04 | disposition home or self-care (01) | DRG 690 ==
LOC: SUATTDRO → ED 20:46 → EDINP 12-08 02:06 → SUATTDRO 12-08 02:06 → INTOOBSV 12-08 02:06 → EDINP 12-08 03:46

== ENCOUNTER 2024-12-19 09:39 | Observation (INO) ==
--- NOTE | 2024-12-19 10:47 | Emergency Department Note ---
History of Present Illness General Chief complaint: Altered Mental Status Stated complaint: PREVIOUS UTI, HALLUCINATIONS Time Seen by Provider: 12/19/24 10:06 Source: patient and family Mode of arrival: ambulatory Limitations: no limitations History of Present Illness The patient is a 74-year-old female with history of breast CA in remission who presents for intermittent visual hallucinations over the past few weeks. According to her [id number] who is at bedside patient has been visualizing people at her house that are not currently there. Last night she was talking to her daughter over the phone however she assumed she was next to her and within the house. She also notes kids running through her house every now and then that are not there. Hallucinations come and go. No auditory hallucinations reported. Recently treated for UTI which was thought to be the cause of her encephalopathy however symptoms have persisted and she recently had urinalysis rechecked by her primary care physician without signs of infection. No reported fevers, chills, headache, double vision, vision loss, numbness or weakness in her extremities, facial droop or speech change. No new medication changes outside of her recent antibiotic course. No drug or alcohol use reported. Home Medications Medication Instructions Recorded Confirmed Type anastrozole 1 mg tablet 1 mg PO QAM 11/03/22 12/19/24 History calcium carbonate (Calcium 600) 1,800 mg PO BIDM 11/03/22 12/19/24 History cholecalciferol (vitamin D3) 25 25 mcg PO DAILY 11/03/22 12/19/24 History mcg (1,000 unit) capsule carvedilol 3.125 mg tablet 3.125 mg PO BIDM 12/26/22 12/19/24 History lisinopril 40 mg tablet 40 mg PO DAILY 04/28/23 12/19/24 History aspirin 81 mg tablet 81 mg PO DAILY 12/08/24 12/19/24 History atorvastatin 20 mg tablet 20 mg PO QAM 12/08/24 12/19/24 History cholecalciferol (vitamin D3) 125 125 mcg PO QPM 12/08/24 12/19/24 History mcg (5,000 unit) tablet (Vitamin D3) Allergies Allergy/AdvReac Type Severity Reaction Status Date / Time sacubitril [From Entresto] AdvReac Severe Confusion Verified 12/08/24 00:52 valsartan [From Entresto] AdvReac Severe Confusion Verified 12/08/24 00:52 adhesive tape AdvReac Mild Rash Verified 12/08/24 00:53 PEDI-PRE TAPE SPRAY Allergy Intermediate Rash Uncoded 12/08/24 00:57 Past Med/Surg History Problem List (Updated 12/19/24 @ 15:08 by Kev Champagne MD) Hallucinations, visual (Acute) Acute UTI (Acute) Acute alteration in mental status (Acute) Elevated troponin (Acute) Hypomagnesemia (Acute) UTI (urinary tract infection), uncomplicated Acute encephalopathy due to infection Cellulitis Fever Malignant neoplasm of lower-inner quadrant of left breast in female, estrogen receptor positive (Chronic 10/05/22) Status post left breast lumpectomy with excision of left axillary lymph node on 10/05/[address] Vasquez H/O lymph node biopsy 01/12/22 - Left axillary lymph node biopsy - Metastatic breast cancer Breast cancer, left breast Diagnosed on 01/12/22 with mets to left axillary lymph node and presumed thoracic spine mets Medical History (Updated 12/19/24 @ 15:08 by Kev Champagne MD) Hypertension Hypercholesteremia Port-A-Cath in place History of chemotherapy Surgical History (Updated 11/03/22 @ 09:25 by Yuko Glez, HODAN) History of cataract surgery Bilateral H/O unilateral salpingectomy With ovary removal as well - tubal Family History (Updated 11/03/22 @ 09:31 by Yuko Glez, HODAN) Mother , in her 80s COVID Stroke Endometrial cancer Breast cancer Father , 57yo Emphysema lung Brother No problems noted. Brother MVA (motor vehicle accident) Brother MVA (motor vehicle accident) Sister Breast cancer COPD (chronic obstructive pulmonary disease) Sister Family history unknown Son Accident Daughter Prematurity Daughter No problems noted. Son No problems noted. 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 Physical Exam Vital Signs Vital Signs - 24 hr 12/19/24 09:47 Temperature 36.3 C L Temperature Source Temporal Artery Scan Pulse Rate 66 Pulse Rhythm Regular Respiratory Rate 20 Respiratory Effort / Characteristics Non-Labored Spontaneous Respiratory Depth Normal Respiratory Pattern Regular Blood Pressure 122/62 Blood Pressure Mean 82 Blood Pressure Position Sitting Pulse Oximetry 99 Oxygen Delivery Method Room Air Sepsis Recent Fever Within 48 Hours No Sepsis New/Unexplained Change in Mental Status No Sepsis Action Taken by Nursing No Action Required See below. Constitutional WD/WN, vitals as above Eyes PERRL, conjunctivae normal, anicteric sclerae ENMT external ear and nose normal, oropharynx normal Respiratory normal respiratory effort, lungs clear to auscultation Cardiovascular RRR, no murmur, no edema Gastrointestinal (Abdomen) normal bowel sounds, soft, nontender, no hepatosplenomegaly Musculoskeletal no cyanosis or clubbing, extremities motor strength 5/5 Skin no rashes, warm and dry Neurologic PERRL, EOMI, accommodation nl, no face palsy, no dysarthria NIHSS of 0 Course Administered Medications Magnesium Sulfate/Dextrose (Magnesium Sulfate / D5w) 1 gm in 100 mls @ 50 mls/hr IV Q2H CORY Stop: 12/19/24 17:44 Last Admin: 12/19/24 14:10 Dose: 50 mls/hr Documented By: NRRosa Discontinued Medications Sodium Chloride (Nss) 1,000 mls @ 999 mls/hr IV .Q1H1M CORY Stop: 12/19/24 11:45 Last Infusion: 12/19/24 14:53 Dose: Infused Documented By: Admin: 12/19/24 10:59 Dose: 999 mls/hr Documented By: MUSA Medical Decision Making Differential Diagnosis CVA, neoplasm, atypical migraine, Lewy body dementia, infection, metabolic abnormality Medical Records Attestation: I reviewed the patient's medical records. Home Medications Current Medication List: was personally reviewed by me Laboratory Data Attestation: I reviewed the patient's lab results. 12/19/24 Unknown 12/19/24 12:02 Lab Results 10/23/25 10/23/25 10/23/25 Range/Units 11:38 12:02 Unknown WBC 5.49 (4.8-10.8) K/ul RBC 3.64 L (4.20-5.40) M/uL Hgb 11.7 L (12.0-16.0) g/dl Hct 33.7 L (37.0-47.0) % MCV 92.6 (80.0-100.0) fL MCH 32.1 (25.0-34.0) pg MCHC 34.7 (32.0-36.0) g/dL RDW Std Deviation 47.7 H (36.4-46.3) fL RDW Coeff of Sara 14.0 (11.5-14.5) % Plt Count 252 (130-400) K/uL MPV 10.0 (9.4-12.4) fL Immature Gran % (Auto) 0.4 % Neut % (Auto) 66.8 % Lymph % (Auto) 21.9 % Eagle % (Auto) 8.0 % Eos % (Auto) 2.2 % Baso % (Auto) 0.7 % Neut # (Auto) 3.67 (1.40-6.50) K/uL Lymph # (Auto) 1.20 (1.20-3.40) K/uL Eagle # (Auto) 0.44 (0.11-0.59) K/uL Eos # (Auto) 0.12 (0.00-0.50) K/uL Baso # (Auto) 0.04 (0.00-0.20) K/uL Immature Gran # (Auto) 0.02 (0.01-0.20) K/uL Sodium 140 Cancelled (136-145) mmol/L Potassium 4.1 Cancelled (3.5-5.1) mmol/L Chloride 106 Cancelled (98-107) mmol/L Carbon Dioxide 23 Cancelled (21-32) mmol/L Anion Gap 11 Cancelled (3-11) BUN 25 H Cancelled (6-23) mg/dl Creatinine 1.12 Cancelled (0.6-1.2) mg/dl Est Cr Clr Drug Dosing 40.6 Cancelled ml/min eGFR 51.28 Cancelled BUN/Creatinine Ratio 22.3 H Cancelled (10-20) Glucose 89 Cancelled (70-99(Fasting)) mg/dl Lactate 1.4 (0.4-2.0) mmol/L Calcium 9.8 Cancelled (8.6-10.3) mg/dl Magnesium 1.3 L Cancelled (1.7-2.4) mg/dl Total Bilirubin 0.7 Cancelled (0.2-1.0) mg/dl AST 17 Cancelled (13-39) U/L ALT 9 Cancelled (7-52) U/L Alkaline Phosphatase 52 Cancelled (34-104) U/L Total Protein 7.3 Cancelled (6.0-8.3) gm/dl Albumin 3.9 Cancelled (3.4-5.0) gm/dl Globulin 3.4 Cancelled (2.5-4.0) gm/dl Albumin/Globulin Ratio 1.1 Cancelled (0.9-2) TSH 3.629 Cancelled (0.300-4.500) uIu/ml Urine Color Yellow Urine Appearance Clear (Clear) Urine pH 8.0 H (4.5-7.5) Ur Specific [place] 1.009 (1.000-1.030) Urine Protein Negative (Negative) Urine Glucose (UA) Negative (Negative) Urine Ketones Negative (Negative) Urine Blood Negative (Negative) Urine Nitrite Negative (Negative) Urine Bilirubin Negative (Negative) Urine Urobilinogen Negative (Negative) Ur Leukocyte Esterase Trace H (Negative) Urine WBC (Auto) 0-5 (0-5) /hpf Urine RBC (Auto) 0-2 (0-2) /hpf U Hyaline Cast (Auto) 0-2 (0-2) /lpf U Epithel Cells (Auto) 0-2 (0-2) /hpf Urine Bacteria (Auto) None Seen (None Seen) Urine Comment Imaging Data Radiologist's Impression: Head CT 12/19/24 10:40 CT head/brain wo con CLINICAL HISTORY: 74 years-old Female with Visual hallucinations. Acutely altered mental status TECHNIQUE: Multiple axial CT images of the head were obtained without contrast. A dose lowering technique was utilized adhering to the principles of ALARA. CT DOSE: 625.8 mGy.cm COMPARISON: 12/07/2024 FINDINGS: No acute intracranial hemorrhage, midline shift, intracranial mass, hydrocephalus, territorial ischemia or abnormal extra-axial collection. Involutional changes with white matter hypodensities suggestive of chronic microvascular ischemic disease. The calvarium is intact. The paranasal sinuses, mastoid air cells, and middle ear cavities are clear. IMPRESSION: No acute intracranial abnormality. ACT 112: Negative or not required by law. The above report was generated using voice recognition software. It may contain grammatical, syntax or spelling errors. Electronically signed by: Elroy King M.D. 12/19/2024 11:37 AM Chest X-Ray 12/19/24 10:41 TWO VIEW CHEST CLINICAL HISTORY: Visual hallucinations. FINDINGS: PA and lateral chest radiographs are compared to study dated PET/CT dated 08/16/2022. The cardiomediastinal silhouette is unremarkable noting atherosclerotic calcification of the thoracic aorta. There are calcified mediastinal lymph nodes. Emphysema and chronic interstitial thickening is similar to previous. There are scattered calcified granulomas. No airspace consolidation or pleural effusion is identified. There is no pneumothorax. The skeletal structures are osteopenic. The bony thorax appears intact. Degenerative change is noted in the thoracic spine. IMPRESSION: Emphysematous change with no active disease in the chest. ACT 112: Negative or not required by law. Electronically signed by: Sammy Sarabia M.D. 12/19/2024 12:13 PM ECG Data Attestation: I personally reviewed and interpreted this ECG as follows: Indication: + altered mental status Rate (beats per minute): 51 Rhythm: + sinus bradycardia ECG Intervals/blocks: + Normal QRS, + Normal QT and + Normal MI ECG [place]: + Normal ECG ST segments: + Normal ST segments Blood Pressure Blood Pressure Findings: Normal blood pressure MDM Narrative Patient is a 74-year-old female presents with several weeks of intermittent visual hallucinations. Recently admitted and discharged after diagnosed with a UTI. She is still having the hallucinations intermittently at home despite finishing her course of antibiotics. workup initiated here in the ED. No signs of infection or metabolic abnormality related to hallucinations. Mg level of 1.3. Repleted here in the ED. CTH non-concerning. CXR reviewed. Reviewed her home medications which were non-concerning for cause of hallucinations. No obvious cause of ongoing visual hallucinations though I recommend admission for further workup. Stable for admission to Medicine service. Impression & Plan Hypomagnesemia, Hallucinations, visual Discharge Plan Visit Data Chief Complaint: Altered Mental Status Stated Complaint: PREVIOUS UTI, HALLUCINATIONS ED Provider: Kev Champagne Discharge Problem: Hypomagnesemia, Hallucinations, visual Patient Disposition: Admitted As Inpatient Condition: Good Forms Stand Alone Forms: My [facility] [address] Prescriptions Prescriptions: No Action anastrozole 1 mg tablet 1 mg PO QAM calcium carbonate [Calcium 600] 600 mg calcium (1,500 mg) tablet 1,800 mg PO BIDM cholecalciferol (vitamin D3) 25 mcg (1,000 unit) capsule 25 mcg PO DAILY carvedilol 3.125 mg tablet 3.125 mg PO BIDM Rx Instructions: take with morning and evening meals lisinopril 40 mg tablet 40 mg PO DAILY atorvastatin 20 mg tablet 20 mg PO QAM cholecalciferol (vitamin D3) [Vitamin D3] 125 mcg (5,000 unit) Tablet 125 mcg PO QPM aspirin 81 mg Tablet 81 mg PO DAILY Referrals Referrals: Shruti Blue PA-C [Primary Care Provider] -
[2024-12-19] MEDS: SODIUM CHLORIDE 0.9% 1,000 ML IV SCH (10:59)
[2024-12-19 11:00] LABS: Hematocrit (blood only) 33.7 % (37.0-47.0); Hemoglobin 11.7 g/dl (12.0-16.0); Immature Granulocytes # (auto) 0.02 K/uL (0.01-0.20); Immature Granulocytes % (auto) 0.4 %; Mean Corpuscular Hemoglobin 32.1 pg (25.0-34.0); Mean Corpuscular Volume 92.6 fL (80.0-100.0); Platelet Count 252 K/uL (130-400); RDW Standard Deviation 47.7 fL (36.4-46.3); Red Blood Count 3.64 M/uL (4.20-5.40); White Blood Count 5.49 K/ul (4.8-10.8)
[2024-12-19 11:34] LABS: Appearance Urine Clear (Clear); Bacteria Urine Automated None Seen (None Seen); Cast Urine Automated 0-2 /lpf (0-2); Epithelial Cell Urine Auto 0-2 /hpf (0-2); Glucose Urine UA Negative (Negative); RBC Urine Automated 0-2 /hpf (0-2); WBC Urine Automated 0-5 /hpf (0-5)
--- NOTE | 2024-12-19 11:39 | CT Scan Report ---
CT head/brain wo con CLINICAL HISTORY: 74 years-old Female with Visual hallucinations. Acutely altered mental status TECHNIQUE: Multiple axial CT images of the head were obtained without contrast. A dose lowering tech nique was utilized adhering to the principles of ALARA. CT DOSE: 625.8 mGy.cm COMPARISON: 12/07/2024 FINDINGS: No acute intracranial hemorrhage, midline shift, intracranial mass, hydrocephalus, territorial ischem ia or abnormal extra-axial collection. Involutional changes with white matter hypodensities suggestiv e of chronic microvascular ischemic disease. The calvarium is intact. The paranasal sinuses, mastoid air cells, and middle ear cavities are clear . IMPRESSION: No acute intracranial abnormality. ACT 112: Negative or not required by law. The above report was generated using voice recognition software. It may contain grammatical, syntax o r spelling errors. Electronically signed by: Elroy King M.D. 12/19/2024 11:37 AM
--- NOTE | 2024-12-19 12:15 | XRay Report ---
TWO VIEW CHEST CLINICAL HISTORY: Visual hallucinations. FINDINGS: PA and lateral chest radiographs are compared to study dated PET/CT dated 08/16/2022. The ca rdiomediastinal silhouette is unremarkable noting atherosclerotic calcification of the thoracic aorta . There are calcified mediastinal lymph nodes. Emphysema and chronic interstitial thickening is simil ar to previous. There are scattered calcified granulomas. No airspace consolidation or pleural effusi on is identified. There is no pneumothorax. The skeletal structures are osteopenic. The bony thorax a ppears intact. Degenerative change is noted in the thoracic spine. IMPRESSION: Emphysematous change with no active disease in the chest. ACT 112: Negative or not required by law. Electronically signed by: Sammy Sarabia M.D. 12/19/2024 12:13 PM
[2024-12-19 13:09] LABS: Albumin Level 3.9 gm/dl (3.4-5.0); Anion Gap 11.0 (3-11); Bilirubin,Total 0.7 mg/dl (0.2-1.0); Calcium 9.8 mg/dl (8.6-10.3); Carbon Dioxide 23.0 mmol/L (21-32); Chloride 106.0 mmol/L (98-107); Magnesium 1.3 mg/dl (1.7-2.4); Potassium 4.1 mmol/L (3.5-5.1); Sodium 140.0 mmol/L (136-145)
[2024-12-19 13:15] LABS: Alanine Aminotransferase 9.0 U/L (7-52); Albumin Globulin Ratio 1.1 (0.9-2); Alkaline Phosphatase 52.0 U/L (34-104); Blood Urea Nitrogen 25.0 mg/dl (6-23); Creatinine Clr Calc Pharmacy 40.6 ml/min; Globulin 3.4 gm/dl (2.5-4.0); Glucose 89.0 mg/dl (70-99(Fasting)); Total Protein 7.3 gm/dl (6.0-8.3)
[2024-12-19 13:26] LABS: Thyroid Stimulating Hormone 3.629 uIu/ml (0.300-4.500)
[2024-12-19] MEDS: MAGNESIUM SULFATE / D5W 1 GM/100 ML BAG IV SCH (14:10)
--- NOTE | 2024-12-19 14:59 | History & Physical Report ---
Date of Service December 19, 2024 Assessment & Plan (1) Hallucinations, visual: (2) Hypomagnesemia: (3) Hypertension: Plan This patient is a 74-year-old female with past medical history of breast cancer with mets to LNs and bones s/p radiation and lumpectomy (now in remission), HTN, HLD, anemia, and former smoker who presented due to confusion and visual hallucinations similar to past episodes which were previously attributed to UTIs. UA here normal.She states that she is seeing a woman and two small children on a daily basis in various rooms of her home, but only when she is alone. She is not seeing them anytime when others are around or when she is outside the house. There are no auditory hallucinations. Pt is aware this isn't real and feels like people might think she is crazy. This has been going on for 3-4 weeks. She denies headaches or weakness, numbness. No N/V, no recent cough/cold symptoms, no fevers/chills, no new medications. In the ED, her magnesium was once again low, but labs otherwise normal, CT head negative. She will be admitted for workup for causes of subacute visual hallucinations and for hypomagnesemia. #Visual hallucinations/Acute encephalopathy- no source of infection found. With h/o breast CA, could have brain mets. Could be strok vs seizure vs metabolic issue like thiamine deficiency, B12 deficiency. Could be early Lewy Body? -admit to med/tele -check brain MRI with contrast -check B12, B1, Lyme, RPR, TSH, CRP, ESR -consider EEG -consult Neurology #Hypomagnesemiahas a h/o such on previous admission even more severe at that time. She is not on any diuretics or PPI. 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 Mag 1.3 on admission, renal function stable on admission. She was given 2 g of IV magnesium in ED -give 1 more gram of IV Mag -follow Mag level -check 24 hr urine mag/try on baster #Former smoker/VILLATORO-no acute issues. Has upcoming outpt stress test and ECHO - recommend PFTs to assess for COPD as she has a longstanding history of smoking-or could order PFTs prior to cardiac testing-defer to PCP #HTNBPs controlled - Continue lisinopril and carvedilol #HLDcontinue atorvastatin #Breast cancers/p chemo therapy and lumpectomy in 2022. Follows with Dr[address] Hooker. Continue anastrozole. #AnemiaHgb 11 , MCV normocytic . Does follow with hematology Dr. Hooker for her history of breast cancer Follow-up with PCP or hematology on this as an outpatient - checking B12, folate, iron studies, TSH VTE ppx: SCDs Dispo: admit to med tele History of Present Illness Chief Complaint: hallucinations Primary Care Provider: Shruti Blue PA-C This patient is a 74-year-old female with past medical history of breast cancer with mets to LNs and bones s/p radiation and lumpectomy (now in remission), HTN, HLD, anemia, and former smoker who presented due to confusion and visual hallucinations similar to past episodes which were previously attributed to UTIs. UA here normal.She states that she is seeing a woman and two small children on a daily basis in various rooms of her home, but only when she is alone. She is not seeing them anytime when others are around or when she is outside the house. There are no auditory hallucinations. Pt is aware this isn't real and feels like people might think she is crazy. This has been going on for 3-4 weeks. She denies headaches or weakness, numbness. No N/V, no recent cough/cold symptoms, no fevers/chills, no new medications. In the ED, her magnesium was once again low, but labs otherwise normal, CT head negative. She will be admitted for workup for causes of subacute visual hallucinations and for hypomagnesemia. Allergies Allergy/AdvReac Type Severity Reaction Status Date / Time sacubitril [From Entresto] AdvReac Severe Confusion Verified 12/08/24 00:52 valsartan [From Entresto] AdvReac Severe Confusion Verified 12/08/24 00:52 adhesive tape AdvReac Mild Rash Verified 12/08/24 00:53 PEDI-PRE TAPE SPRAY Allergy Intermediate Rash Uncoded 12/08/24 00:57 Home Medications Medication Instructions Recorded Confirmed Type anastrozole 1 mg tablet 1 mg PO QAM 11/03/22 12/19/24 History calcium carbonate (Calcium 600) 1,800 mg PO BIDM 11/03/22 12/19/24 History cholecalciferol (vitamin D3) 25 25 mcg PO DAILY 11/03/22 12/19/24 History mcg (1,000 unit) capsule carvedilol 3.125 mg tablet 3.125 mg PO BIDM 12/26/22 12/19/24 History lisinopril 40 mg tablet 40 mg PO DAILY 04/28/23 12/19/24 History aspirin 81 mg tablet 81 mg PO DAILY 12/08/24 12/19/24 History atorvastatin 20 mg tablet 20 mg PO QAM 12/08/24 12/19/24 History cholecalciferol (vitamin D3) 125 125 mcg PO QPM 12/08/24 12/19/24 History mcg (5,000 unit) tablet (Vitamin D3) Past Med/Surg History Problem List Hallucinations, visual (Acute) Acute UTI (Acute) Acute alteration in mental status (Acute) Elevated troponin (Acute) Hypomagnesemia (Acute) UTI (urinary tract infection), uncomplicated Acute encephalopathy due to infection Cellulitis Fever Malignant neoplasm of lower-inner quadrant of left breast in female, estrogen receptor positive (Chronic 10/05/22) Status post left breast lumpectomy with excision of left axillary lymph node on 10/05/[address] Vasquez H/O lymph node biopsy 01/12/22 - Left axillary lymph node biopsy - Metastatic breast cancer Breast cancer, left breast Diagnosed on 01/12/22 with mets to left axillary lymph node and presumed thoracic spine mets Medical History Hypertension Hypercholesteremia Port-A-Cath in place History of chemotherapy Surgical History History of cataract surgery Bilateral H/O unilateral salpingectomy With ovary removal as well - tubal Family History Mother , in her 80s COVID Stroke Endometrial cancer Breast cancer Father , 57yo Emphysema lung Brother No problems noted. Brother MVA (motor vehicle accident) Brother MVA (motor vehicle accident) Sister Breast cancer COPD (chronic obstructive pulmonary disease) Sister Family history unknown Son Accident Daughter Prematurity Daughter No problems noted. Son No problems noted. 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 Feels Safe at Home: Yes Safety Concerns: Feels Safe At This Time Diet: regular caffeine: Yes (1-2 cups/day) during the past year weight has: decreased > 10 lbs Assistive Devices: Denture - Upper and Denture - Lower Review of Systems Review of Systems: All systems reviewed & are unremarkable except as noted in HPI & below Physical Exam Constitutional: WD/WN, vitals as above Eyes: PERRL, conjunctivae normal, anicteric sclerae ENMT: external ear and nose normal, oropharynx normal Neck: trachea midline, no thyromegaly Respiratory: normal respiratory effort, lungs clear to auscultation Cardiovascular: RRR, no murmur, no edema Chest (Breasts): Chest: normal inspection of chest Gastrointestinal (Abdomen): normal bowel sounds, soft, nontender, no hepatosplenomegaly Musculoskeletal: Extremities: extremities normal to inspection; no cyanosis and no clubbing Skin: no rashes, warm and dry Neurologic: PERRL, EOMI, accommodation nl, no face palsy, no dysarthria moves all extremities and awake; no focal motor deficits Speech / Cognition: normal speech and normal cognition Able to name months of the year backwards with one prompt for October AAOx4 Psychiatric: A+Ox3, euthymic affect Lymphatic: no lymphedema Results & Data Results & Data Vital Signs (Past 12 Hours) Vital Signs Temp Pulse Resp BP Pulse Ox O2 Del Method 12/19/24 09:47 36.3 C L 66 20 122/62 99 Room Air Laboratory Results CBC, CMP,UA reviewed Diagnostic Findings CT head and CXR reviewed Code Status & VTE Plan Code Status Full COde VTE Prophylaxis Plan VTE Prophylaxis will be ordered: Yes PG Care Time/CCT Total # of Minutes Spent Total Time Spent with Patient: Total time spent is greater than 50% in coordination of care (as documented) at patient's floor/unit and/or counseling patient: Coding Level of Care Code 06526 INT INP/OBS CARE 3/75MIN Diagnoses Hallucinations, visual R44.1 Hypomagnesemia E83.42 Hypertension I10
[2024-12-19] MEDS ORDERED: POLYETHYLENE (MIRALAX) 17 GM PACK PO PRN (16:30)
[2024-12-19] MEDS ORDERED: ONDANSETRON INJ 2 MG/ML 2 ML VIAL IV PRN (16:30)
[2024-12-19] MEDS: ENOXAPARIN INJ 40 MG/0.4 ML SYR SQ SCH (18:03)
[2024-12-19] MEDS: CALCIUM CARBONATE 1250MG TAB PO SCH (18:06)
[2024-12-19] MEDS: MAGNESIUM SULFATE / D5W 1 GM/100 ML BAG IV ONE (19:32)
[2024-12-19] MEDS: CYANOCOBALAMIN 1000 MCG/ML VIAL IM ONE (19:32)
[2024-12-19] MEDS: GADOBUTROL 65ML VIAL IV ONE (20:28)
--- NOTE | 2024-12-19 20:58 | Magnetic Resonance Report ---
Exam(s): MRI HEAD W/WO Contrast IV Amt: 6.7cc gadavist EXAM: MR Head Without and With Intravenous Contrast CLINICAL HISTORY: Reason for exam: persistent hallucinations,h/o breast CA. OTHER: Other Notes: 6.7CC GADAVIST INJ. RIGHT IV AT 2019 HRS. BY CMP UTI/CONFUSION HX BREAST CANCER PROP SCANS FOR MOTION TECHNIQUE: Magnetic resonance images of the head/brain without and with intravenous contrast in multiple planes. CONTRAST: Patient received 6.7cc gadavist of IV contrast COMPARISON: CT head on same day FINDINGS: Brain: No hemorrhage. No restricted diffusion to suggest acute infarct. Ventricles: Prominence of the ventricles and sulci is likely secondary to cerebral volume loss. Bones/joints: Unremarkable. No acute fracture. Soft tissues: Unremarkable. No abnormal enhancement identified. Sinuses: Unremarkable as visualized. No acute sinusitis. Mastoid air cells: Unremarkable as visualized. No mastoid effusion. Orbits: Bilateral lens implants. Other vasculature: Prominent chronic small-vessel ischemic changes. IMPRESSION: 1. No acute intracranial abnormality identified. 2. Prominent chronic small-vessel ischemic changes. Electronically signed by: Jazlyn Cavazos M.D. 12/19/24 20:57 PM
[2024-12-19 23:18] VITALS: RESP 18
[2024-12-19] MEDS: ACETAMINOPHEN 325 MG TAB PO PRN (23:56)
--- NOTE | 2024-12-20 06:32 | Electrocardiogram Report ---
Test Reason : Blood Pressure : */* mmHG Vent. Rate : 51 BPM Atrial Rate : 51 BPM P-R Int : 156 ms QRS Dur : 80 ms QT Int : 434 ms P-R-T Axes : 52 -14 95 degrees QTcB Int : 400 ms Sinus bradycardia Septal infarct , age undetermined Abnormal ECG When compared with ECG of 07-Dec-2024 21:59, No significant change Confirmed by Finn Tello ([id number]) on 12/20/2024 6:32:27 AM Referred By: REFERRED SELF Confirmed By: Finn Tello
[2024-12-20 07:34] LABS: Anion Gap 7 (3-11); Blood Urea Nitrogen 25 mg/dl (6-23); Calcium 8.6 mg/dl (8.6-10.3); Carbon Dioxide 25 mmol/L (21-32); Chloride 108 mmol/L (98-107); Creatinine Clr Calc Pharmacy 45.1 ml/min; Glucose 108 mg/dl (70-99(Fasting)); Iron 61 mcg/dl (35-150); Magnesium 2.0 mg/dl (1.7-2.4); Potassium 4.1 mmol/L (3.5-5.1); Sodium 140 mmol/L (136-145); Total Iron Binding Cap Calc 249 mcg/dl (250-450); Transferrin 178 mg/dl (200-360); Transferrin (FE) Percent Satur 24 % (15-50)
[2024-12-20 07:54] LABS: Ferritin 144.3 ng/ml (8-388)
[2024-12-20 09:02] LABS: Hematocrit (blood only) 31.9 % (37.0-47.0); Hemoglobin 10.6 g/dl (12.0-16.0); Immature Granulocytes # (auto) 0.01 K/uL (0.01-0.20); Immature Granulocytes % (auto) 0.2 %; Mean Corpuscular Hemoglobin 30.8 pg (25.0-34.0); Mean Corpuscular Volume 92.7 fL (80.0-100.0); Platelet Count 233 K/uL (130-400); RDW Standard Deviation 47.4 fL (36.4-46.3); Red Blood Count 3.44 M/uL (4.20-5.40); White Blood Count 5.09 K/ul (4.8-10.8)
--- NOTE | 2024-12-20 09:40 | Neurology Consultation ---
Date of Consultation December 20, 2024 Assessment & Plan (1) Hallucinations, visual: (2) Chronic cerebral ischemia: (3) Hypomagnesemia: Plan Patient has a subacute onset of visual hallucinations with some altered mental status. The mental status is more minor forgetfulness and confusion but she is still functioning very highly. Since she has been admitted, she has experienced no visual hallucinations and her mental status has improved. The patient had hypomagnesemia of significance 2 weeks ago, it was improved to normal and over the last 2 weeks it has drifted down to low levels again. Interestingly, hypomagnesemia can cause confusion/encephalopathy and visual hallucinations. The etiology of the hypomagnesemia is not certain but it may be decreased absorption The patient has extensive small vessel ischemic disease of an old nature seen on MRI. This could easily give her a vascular dementia. She has been on aspirin for the last 2 years. Recommendations: 1. Continue 81 mg aspirin tablet daily for now. We might consider switching her to clopidogrel in future 2. The patient needs daily magnesium supplementation and follow magnesium levels 3. I see no need for additional neurologic testing at this time although CT angiography of the head and neck would be reasonable to evaluate cerebral vasculature (given her extensive small vessel ischemic changes on MRI) 4. I would avoid medication for hallucinations at this time but this could be determined as an outpatient. 5. I can follow as an outpatient, if desired Overall, I spent a total of 75 minutes with this case including review of records, review of MRI films, direct evaluation the patient at bedside, report generation, and discussion of the case with the patient and RN at bedside, and Dr. Valdez including differential diagnosis and treatment options. History of Present Illness Reason for Consultation: Patient is a 74-year-old, who was asked to see at the request of Dr. Valdez for neurologic evaluation regarding visual hallucinations. Requesting Physician: Dr. Valdez Attending Physician: Mara Valdez MD History of Present Illness This patient has a history of emphysema from longstanding cigarette smoking. 2 to 3 years ago she was diagnosed with left breast cancer and underwent lumpectomy followed by 6640 cGy radiation. She has been on anastrozole and there has been no recurrence of tumor to date. Patient came to the hospital December 07 with acute confusion, hypomagnesemia (1.1), and an acute urinary tract infection. Urinary tract infection was treated with Rocephin and the confusion cleared before she left the hospital December 08. She had been given IV magnesium 3 g +30 mill equivalents KCl. On December 08 magnesium was 2.0 and potassium 4.0. She was given cefdinir 300 mg twice daily for 6 more days. For the last 2 to 3 weeks (not longer according to the patient she has been having visual hallucinations noted by herself and family. They consist mostly of seeing 1 or 2 children out of the corner of her eye. When she turns her head quickly she may briefly see them still. She knows they are not real. She does not have auditory hallucinations. She thinks that she has had a little bit of memory and confusion over the last 2 weeks. Although she takes calcium and vitamin D, she is not on any magnesium supplementation. She was brought to the emergency room December 19 in the morning because of intermittent visual hallucinations. There was still a little bit of confusion/memory issues but she did not have an overt encephalopathy. She arrived at the emergency room at 0947 on December 19 with a temperature of 36.3, pulse 66 and regular, respiratory rate 20, blood pressure 120/62, and O2 saturation 99%. Her examination was unremarkable with no significant neurologic deficits or confusion (NIH stroke scale 0) CBC was unremarkable except for some slight anemia. White count was normal and lactate was 1.4. CHEM profile was unremarkable although the BUN was slightly elevated. Liver profile was normal. Magnesium level was low at 1.3 (normal 1.7-2.4). TSH was 3.6 and urinalysis was unremarkable. B12 was 246. Chest x-ray was unremarkable except for some emphysema changes MRI of the brain without contrast showed extensive old small vessel ischemic disease but no acute stroke. Patient has no history of stroke. The patient denies any headaches, blurry or double vision, speech or swallowing problems pain in the limbs or spine, dysesthesias or numbness or lightheadedness/dizziness. She does feel her memory has been off somewhat short-term for some time and her mood is reasonable. The CRP was less than 0.5 folate and a magnesium today was 2.0. Treponema pallidum and Lyme antibody titers were negative. Blood pressure this morning is 167/67. The patient does not believe she is confused and has had no hallucinations since coming to the ER yesterday. Allergies Allergy/AdvReac Type Severity Reaction Status Date / Time sacubitril [From Entresto] AdvReac Severe Confusion Verified 12/08/24 00:52 valsartan [From Entresto] AdvReac Severe Confusion Verified 12/08/24 00:52 adhesive tape AdvReac Mild Rash Verified 12/08/24 00:53 PEDI-PRE TAPE SPRAY Allergy Intermediate Rash Uncoded 12/08/24 00:57 Home Medications Medication Instructions Recorded Confirmed Type anastrozole 1 mg tablet 1 mg PO QAM 11/03/22 12/19/24 History calcium carbonate (Calcium 600) 1,800 mg PO BIDM 11/03/22 12/19/24 History cholecalciferol (vitamin D3) 25 25 mcg PO DAILY 11/03/22 12/19/24 History mcg (1,000 unit) capsule carvedilol 3.125 mg tablet 3.125 mg PO BIDM 12/26/22 12/19/24 History lisinopril 40 mg tablet 40 mg PO DAILY 04/28/23 12/19/24 History aspirin 81 mg tablet 81 mg PO DAILY 12/08/24 12/19/24 History atorvastatin 20 mg tablet 20 mg PO QAM 12/08/24 12/19/24 History cholecalciferol (vitamin D3) 125 125 mcg PO QPM 12/08/24 12/19/24 History mcg (5,000 unit) tablet (Vitamin D3) Patient History Medical History Hypertension Hypercholesteremia Port-A-Cath in place History of chemotherapy Surgical History History of cataract surgery Bilateral H/O unilateral salpingectomy With ovary removal as well - tubal Family History Mother , in her 80s COVID Stroke Endometrial cancer Breast cancer Father , 57yo Emphysema lung Brother No problems noted. Brother MVA (motor vehicle accident) Brother MVA (motor vehicle accident) Sister Breast cancer COPD (chronic obstructive pulmonary disease) Sister Family history unknown Son Accident Daughter Prematurity Daughter No problems noted. Son No problems noted. 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 Feels Safe at Home: Yes Safety Concerns: Feels Safe At This Time Diet: regular caffeine: Yes (1-2 cups/day) during the past year weight has: decreased > 10 lbs Assistive Devices: Denture - Upper and Denture - Lower Review of Systems Constitutional: no fever, no fatigue and no weakness Eyes: no diplopia, no eye pain and no worsening vision Ear, Nose, Mouth, Throat: no ear pain, no tinnitus, no hearing loss, no dizziness, no snoring, no hoarseness and no dysphagia Respiratory: no cough and no dyspnea Cardiovascular: no chest pain, no palpitations and no lightheadedness Gastrointestinal: no abdominal pain, no nausea and no vomiting Genitourinary: no dysuria, no urinary frequency and no urinary incontinence Musculoskeletal: no back pain, no neck pain, no radicular pain, no joint pain and no myalgia Integumentary: no rash and no lesions Neurologic: + memory loss; no gait abnormality, no l ocalized weakness, no generalized weakness, no tingling, no numbness, no tremor(s), no abnormal movements, no headache(s), no abnormal speech and no confusion Psychiatric: + hallucinations; no depression, no irri tability, no anxiety, no difficulty concentrating and no confusion Endocrine: no fatigue and no flushing Hematologic / Lymphatic: no easy bleeding and no easy bruising Allergy / Immunological: no urticaria and no problem reported Exam (Neuro) Physical Exam: The patient is right-handed. The patient is awake, alert, and attentive. Speech is normal without any aphasia or dysarthria. Mentation and thought processes are intact (although slightly hesitant), with full orientation and reasonable fund of knowledge. Mood and affect are normal and appropriate. Appearance and grooming are normal. Short and long-term memory are fairly good to conversation. She is pleasant and cooperative, calm and on point with conversation Pupils are 3 mm bilaterally and reactive to light. Extraocular eye muscles are intact without nystagmus. Visual acuity and visual turner seem normal grossly to confrontation. There are no deficits to sensation in the face in all 3 distributions of the fifth cranial nerve bilaterally. Corneal reflexes are positive bilaterally. Facial strength and symmetry was normal bilaterally. Hearing seems intact grossly to voice and finger rub bilaterally. Palate moves well without asymmetry. There is normal sternocleidomastoid and trapezius strength bilaterally. Tongue is midline with good strength bilaterally. Neck has a full range of motion without discomfort. There are no cervical bruits bilaterally. There are no cranial or ocular bruits. Heart is without murmur. There is a regular rhythm and rate. Cervical, thoracic, and lumbar spine are nontender to palpation. Gait was not tested but stance sitting up is normal. With outstretched arms there is no drift. There are no resting, postural, or action tremors. There is no ataxia with finger to nose testing. There is good facility in the hands. No other abnormal involuntary movements are noted. Motor strength is 5/5 diffusely in the arms bilaterally including deltoids, biceps, triceps, brachioradialis, wrist flexors and extensors, cash van salesperson, and intrinsic hand muscles. Motor strength is 5/5 diffusely in the legs bilaterally including hip flexors, quadriceps, hamstrings, gastrocnemius, tibialis anterior, tibialis posterior, and Peroneii muscles bilaterally. Toe extensors are normal and there is good bulk in the extensor digitorum brevis muscles bilaterally. The limbs have good tone without rigidity or spasticity. There is no atrophy noted in the muscles. Muscle bulk is normal, there is no tenderness to palpation, no myotonia to percussion, and no fasciculations seen. Sensory examination is intact to touch and pin throughout all 4 limbs diffusely. Reflexes are 1/4 in the biceps, triceps, brachioradialis, quadriceps, and Achilles tendons bilaterally. Toes are downgoing with plantar stimulation bilaterally. Peripheral pulses are present and of normal quality distally in all 4 limbs. There is no peripheral edema noted in the limbs. Results & Data Vital Signs (Past 12 Hours) Vital Signs Temp Pulse Pulse Resp BP Pulse Ox O2 Del Method 12/20/24 09:11 49 L 12/20/24 07:31 36.8 C 51 L 18 167/67 H 97 Room Air 12/20/24 02:54 36.7 C 77 18 162/73 H 93 Room Air 12/19/24 22:35 36.5 C 63 18 136/67 98 Room Air 12/19/24 22:09 61 PG Care Time/CCT Total # of Minutes Spent Total Time Spent with Patient: Total time spent is greater than 50% in coordination of care (as documented) at patient's floor/unit and/or counseling patient: Coding Level of Care Code 57102 INT INP/OBS CARE 3/75MIN Diagnoses Hallucinations, visual R44.1 Chronic cerebral ischemia I67.82 Hypomagnesemia E83.42 Time Spent (min) 75
[2024-12-20] MEDS: ASPIRIN 81 MG ECTAB PO SCH (10:07)
[2024-12-20] MEDS: ATORVASTATIN 20 MG TAB PO SCH (10:07)
[2024-12-20] MEDS: ANASTROZOLE 1 MG TAB PO SCH (10:08)
[2024-12-20] MEDS: THIAMINE HCL 500 MG in SODIUM CHLORIDE 0.9% 50 ML IV ONE (11:44)
[2024-12-20] MEDS: CHOLECALCIFEROL 25 MCG (1000 UNITS) TAB PO SCH (12:14)
[2024-12-20 14:31] VITALS: BP 150/58; TEMP 97.5; O2SAT 97
--- NOTE | 2024-12-20 17:11 | Discharge Summary ---
Discharge Summary Date of Service December 20, 2024 Principal Dx & Hospital Course #1 = Principal Diagnosis (1) Hallucinations, visual: (2) Hypomagnesemia: (3) Hypertension: Plan This patient is a 74-year-old female with past medical history of breast cancer with mets to LNs and bones s/p radiation and lumpectomy (now in remission), HTN, HLD, anemia, and former smoker who presented due to confusion and visual hallucinations similar to past episodes which were previously attributed to UTIs. UA here normal.She states that she is seeing a woman and two small children on a daily basis in various rooms of her home, but only when she is alone. She is not seeing them anytime when others are around or when she is outside the house. There are no auditory hallucinations. Pt is aware this isn't real and feels like people might think she is crazy. This has been going on for 3-4 weeks. She denies headaches or weakness, numbness. No N/V, no recent cough/cold symptoms, no fevers/chills, no new medications. In the ED, her magnesium was once again low, but labs otherwise normal, CT head negative. She was admitted for workup for causes of subacute visual hallucinations and for hypomagnesemia. #Visual hallucinations/Acute encephalopathy- no source of infection found. With h/o breast CA, could have brain mets. Could be stroke vs seizure vs metabolic issue like thiamine deficiency, B12 deficiency. Could be early Lewy Body? Neurology consulted and thought she likely has vascular dementia. Does not feel need for EEG testing. Could also be depression with psychosis? She reports she often feels her mood is depressed since the of her son. MRI of the brain with contrast was negative for acute issue or tumor. She does have prominent small vessel ischemic disease. Perhaps the low magnesium is contributing. She had no significant events on telemetry except sinus bradycardia. She did have some overnight confusion where she was perhaps talking to people that were not in the room as per nursing notes but the patient does not recall this. B12 level was borderline low, Lyme, RPR, TSH, CRP, ESR all normal. Vitamin B1 level pending at the time of discharge but IV thiamine empirically given x 1 -Replacing B12 and empirically replacing thiamine until level is resulted - Follow-up with neurology as an outpatient - Consider referral to psychiatry as well as an outpatient #Hypomagnesemiahas a h/o such on previous admission even more severe at that time. She is not on any diuretics or PPI. 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 Mag 1.3 on admission, renal function stable on admission. She was given 3 g of IV magnesium and levels improved to normal -Start Slow-Mag 64 mg p.o. 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 She was given 1 dose of IM B12 1000 mcg - Start vitamin B12 1000 mcg p.o. daily and follow-up as an outpatient #Former smoker/VILLATORO-no acute issues. Has upcoming outpt stress test and ECHO - recommend PFTs to assess for COPD as she has a longstanding history of smoking-or could order PFTs prior to cardiac testing-defer to PCP #HTNBPs controlled - Continue lisinopril and carvedilol #HLDcontinue atorvastatin #Breast cancers/p chemo therapy and lumpectomy in 2022. Follows with Dr. Hooker. Continue anastrozole. #AnemiaHgb 11 , MCV normocytic . Does follow with hematology Dr. Hooker for her history of breast cancer. B12 level mildly low. Iron studies, folate, TSH normal Follow-up with PCP or hematology on this as an outpatient -Replacing vitamin B12 VTE ppx: SCDs Dispo: Stable for discharge to home Notes For Next Care Provider Consider referral to psychiatry Follow-up with neurology for perhaps vascular dementia Medication Changes From Visit Added vitamin B12 and vitamin B1 Admission HPI Per Admitting Provider This patient is a 74-year-old female with past medical history of breast cancer with mets to LNs and bones s/p radiation and lumpectomy (now in remission), HTN, HLD, anemia, and former smoker who presented due to confusion and visual hallucinations similar to past episodes which were previously attributed to UTIs. UA here normal.She states that she is seeing a woman and two small children on a daily basis in various rooms of her home, but only when she is alone. She is not seeing them anytime when others are around or when she is outside the house. There are no auditory hallucinations. Pt is aware this isn't real and feels like people might think she is crazy. This has been going on for 3-4 weeks. She denies headaches or weakness, numbness. No N/V, no recent cough/cold symptoms, no fevers/chills, no new medications. In the ED, her magnesium was once again low, but labs otherwise normal, CT head negative. She will be admitted for workup for causes of subacute visual hallucinations and for hypomagnesemia. Discharge Exam Constitutional WD/WN, vitals as above Neck trachea midline, no thyromegaly Respiratory normal respiratory effort, lungs clear to auscultation Cardiovascular RRR, no murmur, no edema Chest (Breasts) Chest: normal inspection of chest Gastrointestinal (Abdomen) normal bowel sounds, soft, nontender, no hepatosplenomegaly Musculoskeletal Extremities: extremities normal to inspection; no cyanosis and no clubbing Skin no rashes, warm and dry Neurologic moves all extremities and awake; no focal motor deficits Speech / Cognition: normal speech and normal cognition Psychiatric Orientation: alert and oriented x 3 Mood: + depressed mood (At times) Lymphatic no lymphedema Discharge Plan Discharge Items Patient Disposition: Home - Self-Care Reason For Visit: VISUAL HALLUCINATIONS Discharge Diagnosis: Visual hallucinations Hypomagnesemia Borderline vitamin B12 deficiency Condition on Discharge: Good Activity: Resume your previous activity Non-emergency contact: Primary Care Provider and Neurologist Call non-emergency contact if: you have any medication questions and your symptoms worsen Follow-up/Referrals: Yves Flores MD [Physician] - (Follow-up with the neurologist within 1 month- please call for an appointment.) Shruti Blue PA-C [Primary Care Provider] - (Follow-up within 1-2 weeks.) Diet: Heart Healthy Addtl Attending Provider Instructions: You were admitted with visual hallucinations. You had a workup to include a brain MRI which was negative for stroke or brain tumor. You do have prominent small vessel ischemic disease in the brain which can predispose you to getting dementia. The neurologist would like to see you in follow-up for further evaluation for vascular dementia. You had multiple blood tests to look for vitamin deficiencies, Lyme disease, syphilis, thyroid disorders, and your B12 level was found to be mildly low. You were started on supplementation for this. Your vitamin B1 level was pending at the time of discharge but you were started on thiamine in case of a low vitamin B1 level. This could improve your symptoms. There is a chance that this could be a sign of depression as well with psychosis. Please talk to your PCP about a referral to psychiatry as an outpatient for further evaluation. Your magnesium level was once again quite low. There is no obvious cause for this. Please continue taking a magnesium supplement and have your primary care provider check a magnesium level in 1 week as an outpatient. Your primary care provider can also do a 24-hour urine collection for magnesium. Pending Studies at Discharge: Yes (Vitamin B1 level) Stand-Alone Forms: My [facility] Medications and DC Order Prescriptions: New cyanocobalamin (vitamin B-12) 1,000 mcg capsule 1,000 mcg PO DAILY Qty: 30 0RF Rx Instructions: Scjh-ety-sgtgpxu magnesium chloride [Mag 64] 64 mg tablet,delayed release (DR/EC) 64 mg PO DAILY Qty: 30 0RF Rx Instructions: Irot-vea-stblqvb thiamine HCl (vitamin B1) 100 mg Tablet 200 mg PO QAM Qty: 60 0RF Rx Instructions: Lpqu-iob-iwmojti Continued anastrozole 1 mg tablet 1 mg PO QAM calcium carbonate [Calcium 600] 600 mg calcium (1,500 mg) tablet 1,800 mg PO BIDM cholecalciferol (vitamin D3) 25 mcg (1,000 unit) capsule 25 mcg PO DAILY carvedilol 3.125 mg tablet 3.125 mg PO BIDM Rx Instructions: take with morning and evening meals lisinopril 40 mg tablet 40 mg PO DAILY atorvastatin 20 mg tablet 20 mg PO QAM cholecalciferol (vitamin D3) [Vitamin D3] 125 mcg (5,000 unit) Tablet 125 mcg PO QPM aspirin 81 mg Tablet 81 mg PO DAILY Discharge Orders: Discharge Order (Routine); Ordered 12/20/24 Ordered By: Mara Valdez Admission Data Admit Date/Time: 12/19/24 14:57 Attending Provider: Mara Valdez Admit Provider: Mara Valdez Primary Care Provider: Shruti Blue Other Providers: Kev Lenz; Mara Valdez Hospital Stay Data Consultations 12/19/24 14:47 Consult Neurology Routine 12/19/24 15:00 ED Decision to Admit Stat Diagnostic Imagining Performed 12/19/24 10:40 CT head/brain wo con Stat 12/19/24 14:47 MRI Brain [MR brain wo/w con] Urgent Pending Results Patient Have Any Pending Studies at Discharge: Yes (Vitamin B1 level) Discharge Instructions Given to Patient (Per Discharging Provider) You were admitted with visual hallucinations. You had a workup to include a brain MRI which was negative for stroke or brain tumor. You do have prominent small vessel ischemic disease in the brain which can predispose you to getting dementia. The neurologist would like to see you in follow-up for further evaluation for vascular dementia. You had multiple blood tests to look for vitamin deficiencies, Lyme disease, syphilis, thyroid disorders, and your B12 level was found to be mildly low. You were started on supplementation for this. Your vitamin B1 level was pending at the time of discharge but you were started on thiamine in case of a low vitamin B1 level. This could improve your symptoms. There is a chance that this could be a sign of depression as well with psychosis. Please talk to your PCP about a referral to psychiatry as an outpatient for further evaluation. Your magnesium level was once again quite low. There is no obvious cause for this. Please continue taking a magnesium supplement and have your primary care provider check a magnesium level in 1 week as an outpatient. Your primary care provider can also do a 24-hour urine collection for magnesium. Total Time Total Time Spent Total Time Spent (In Minutes): 35 minutes Total Time Includes: Examination of the Patient, Discharge Planning, Medication Reconciliation and Communication With Other Providers (Neurology) Coding Level of Care Code 45323 INP/OBS DISCH >30 MIN Diagnoses Hallucinations, visual R44.1 Hypomagnesemia E83.42 Hypertension I10
[2024-12-20 18:21] VITALS: PULSE 55
[2024-12-21] MEDS ORDERED: THIAMINE HCL 100 MG TAB PO SCH (09:00)
== END 2024-12-20 18:16 | disposition home or self-care (01) | DRG 125 ==
LOC: ED 09:39 → INTOOBSV 14:57 → 2N 14:57